=== PATIENT | female | born 1985 | race Caucasian/White ===

== ENCOUNTER → 2016-07-03 | Outpatient (CLI) | payer BC ==
[~2016-07-03] MED LIST: BCPILLS PO; EPP3/2 IM; LEVO100T7 PO; PRED20TA2 PO; PRENATA2 PO; RANI150T3 PO; SYN100 PO
== END | disposition home or self-care (01) ==
LOC: C.LABPVFM 14:46
PROVIDERS: ATTEND Nurse Practitioner
DX: E03.9 Hypothyroidism, unspecified (principal)

== ENCOUNTER → 2016-08-31 | Outpatient (CLI) | payer BC ==
[2016-08-31 17:31] LABS: BASO % 0.2 %; BASO ABS # 0.01 K/uL (0-0.2); COMPLETE YES; HEMATOCRIT 38.8 % (37-47); IG% 0.2 %; LYMPH % 37.6 %; LYMPH ABS # 2.31 K/uL (1.2-3.4); MEAN CELL VOLUME 92.8 fL (80-100); MEAN CORPUSCULAR HEMOGLOBIN 32.5 pg (25-34); MEAN CORPUSCULAR HGB CONC 35.1 g/dl (32-36); MEAN PLATELET VOLUME 11.2 fL (7.4-10.4); PLATELET COUNT 335 K/uL (130-400); RED BLOOD COUNT 4.18 M/uL (4.2-5.4); WHITE BLOOD COUNT 6.14 K/uL (4.8-10.8)
[2016-09-04 08:39] LABS: CHLAMYDIA TRACH RNA*** NOT DETECTED (NOT DETECTED); GC (NEIS GONORRHOEAE)RNA** NOT DETECTED (NOT DETECTED)
[2016-09-04 14:40] LABS: HSV1 AB IGM Negative (Negative); HSV2 AB IGM Negative (Negative)
== END | disposition home or self-care (01) ==
LOC: C.LABPVFM 16:09
PROVIDERS: ATTEND Nurse Practitioner
DX: Z20.2 Contact with and (suspected) exposure to infections with a predominantly sexual mode of transmission (principal); L50.1 Idiopathic urticaria

== ENCOUNTER 2016-09-09 20:52 | Emergency (ER) | payer BC ==
[~2016-09-09] VITALS: Ht 170.2 cm; Wt 56.7 kg
[~2016-09-09 20:52] MED LIST changes: -BCPILLS PO; -EPP3/2 IM; -LEVO100T7 PO; -PRED20TA2 PO; -RANI150T3 PO
[2016-09-09 20:56] VITALS: TEMP 36.7; Ht 170.2 cm; Wt 56.7 kg
[2016-09-09] MEDS ORDERED: RANI150T3 PO (21:08)
[2016-09-09] MEDS ORDERED: LEVO100T7 PO (21:08)
[2016-09-09] MEDS ORDERED: BCPILLS PO (21:08)
[2016-09-09] MEDS ORDERED: DiphenhydrAMINE HCL 50 MG/ML VIAL IV STA (21:13)
[2016-09-09] MEDS ORDERED: SODIUM CHLORIDE 0.9% 1000ML 1,000 ML IV STA (21:15)
[2016-09-09] MEDS ORDERED: DEXAMETHASONE SOD INJ 10 MG/ML VIAL IV ONE (21:15)
--- NOTE | 2016-09-09 21:16 | EMERGENCY ROOM VISIT NOTE ---
History Report prepared by Denisibrg: Kami Cain Under the Supervision of: Dr. Deepak Bishop M.D. First contact with patient: 21:07 Chief Complaint: ALLERGIC REACTION Stated Complaint: SWOLLEN LIPS/TONGUE/HANDS History of Present Illness The patient is a 30 year old female who presents to the Emergency Room with complaints of constant allergic reaction symptoms beginning 8 hours prior to arrival. The patient has been experiencing swollen lips, tongue and hands. She also notes hand tingling. She has been experiencing hives intermittently for the past month. The patient states that she is unsure what is causing the reactions. She took Ibuprofen and Benadryl today. Review of Systems See HPI for pertinent positives & negatives. A total of 10 systems reviewed and were otherwise negative. Social History Smoking Status: Never Smoker Smokeless Tobacco Use: No Marital Status: Housing Status: lives with family Current/Historical Medications Scheduled Control Pills ( Control Pills), 1 TAB PO DAILY Epinephrine (Epipen), 0.3 MG IM UD Levothyroxine Sodium (Levothyroxine Sodium), 1 TAB PO DAILY Prednisone (Prednisone Tab), 2 TAB PO DAILY Ranitidine Hcl (Zantac), 150 MG PO BID Allergies Coded Allergies: Erythromycin (Verified Allergy, Severe, HIVES, 09/09/16) Sulfisoxazole (Verified Allergy, Severe, HIVES, 09/09/16) Physical Exam Vital Signs Date Time Temp Pulse Resp B/P Pulse Ox O2 Delivery O2 Flow Rate FiO2 09/09/16 22:36 88 18 124/80 100 Room Air 09/09/16 21:48 98 18 129/81 100 Room Air 09/09/16 20:56 36.7 88 20 121/75 99 Room Air Physical Exam GENERAL: Patient is a healthy-appearing well-nourished female HEAD: Normocephalic atraumatic EYES: Ocular movements intact pupils equal and react to light OROPHARYNX mucous membranes are moist no exudates present no erythema present, lips are grossly swollen, uvula normal, no issues swallowing saliva NECK: Supple no nuchal rigidity, No stridor on exam CHEST: Good equal expansion LUNGS: Clear and equal to auscultation CARDIAC: Normal S1 and S2 ABDOMEN: Soft nontender no guarding BACK: No CVA tenderness EXTREMITIES: No pain upon palpation normal muscle strength in all groups no clubbing cyanosis or edema NEURO: Patient is following commands is answering questions appropriately. Alert and oriented x3 Cranial Nerves 2-12 grossly intact Medical Decision & Procedures Medications Administered Medications (Trade) Dose Ordered Sig/Roz Route Start Time Stop Time Status Last Admin Dose Admin Dexamethasone Sodium Phosphate (Decadron Inj) 10 mg NOW ONCE IV 09/09/16 21:15 09/09/16 21:16 DC 09/09/16 21:18 10 MG Diphenhydramine HCl 25 mg 25 mg NOW STAT IV 09/09/16 21:13 09/09/16 21:14 DC 09/09/16 21:18 25 MG Sodium Chloride (Nss 1000ml) 1,000 ml @ 999 mls/hr Q1H1M STAT IV 09/09/16 21:15 09/09/16 22:15 DC 09/09/16 21:18 999 MLS/HR ED Course 2108: Past medical records reviewed. The patient was evaluated in room A3. A complete history and physical examination was performed. Medical Decision The patient is a 30 year old female who presents to the ED with complaints of allergic reaction. This is a 30-year-old female who is following up with an supervisor pipeline several days. She comes to the emergency department complaining of swollen lips and tongue. I will note that the patient had multiple doses of ibuprofen today which she does not take regularly. She appears to have angioedema and I believe this is most likely started from an NSAID. I advised patient take Tylenol from now on. The patient has no evidence of stridor or wheezing on examination. An IV was established, patient given Benadryl along with Decadron in the emergency department. The patient had slight improvement in her symptoms and no worsening. I believe that the patient can be safely discharged home for follow-up with her supervisor pipeline. I will place her on prednisone for the next several days. The patient is a 28 taking Zantac and Benadryl. Patient was in agreement with the treatment plan. Impression Primary Impression: Angioedema Scribe Attestation The scribe's documentation has been prepared under my direction and personally reviewed by me in its entirety. I confirm that the note above accurately reflects all work, treatment, procedures, and medical decision making performed by me. Departure Information Dispostion Home / Self-Care Prescriptions Prednisone (Prednisone Tab) 20 Mg Tab 2 TAB PO DAILY for 5 Days, TAB Prov: Deepak Bishop MD 09/09/16 Epinephrine (EPIPEN) 0.3 Mg/0.3 Ml Inj 0.3 MG IM UD, #2 BOX Prov: Deepak Bishop MD 09/09/16 Referrals Libra Jones C.R.N.P (PCP) Patient Instructions My [facility] Problem Qualifiers Primary Impression: Angioedema Encounter type: initial encounter Qualified Codes: T78.3XXA - Angioneurotic edema, initial encounter
[2016-09-09] MEDS ORDERED: EPP3/2 IM (22:19)
[2016-09-09] MEDS ORDERED: PRED20TA2 PO (22:19)
[2016-09-09 22:36] VITALS: BP 124/80; PULSE 88; O2SAT 100
== END 2016-09-09 22:45 | disposition home or self-care (01) ==
LOC: C.EDB 20:52 → C.EDA 22:45
DX: T78.3XXA Angioneurotic edema, initial encounter (principal); R22.0 Localized swelling, mass and lump, head; X58.XXXA Exposure to other specified factors, initial encounter

== ENCOUNTER → 2016-09-11 | Outpatient (CLI) | payer BC ==
[~2016-09-11] MED LIST changes: +BCPILLS PO; +EPP3/2 IM; +LEVO100T7 PO; +PRED20TA2 PO; -PRENATA2 PO; +RANI150T3 PO; -SYN100 PO
[2016-09-11 14:04] LABS: LYME DISEASE AB IGG NEG (NEG); LYME DISEASE AB IGM NEG (NEG)
== END | disposition home or self-care (01) ==
LOC: C.LABPVFM 10:25
PROVIDERS: ATTEND Nurse Practitioner
DX: L50.1 Idiopathic urticaria (principal); R53.83 Other fatigue

== ENCOUNTER → 2016-12-01 | Outpatient (CLI) | payer BC ==
[~2016-12-01] MED LIST changes: -PRED20TA2 PO
== END | disposition home or self-care (01) ==
LOC: C.LABPVFM 08:28
PROVIDERS: ATTEND Nurse Practitioner
DX: E03.9 Hypothyroidism, unspecified (principal)

== ENCOUNTER → 2017-02-26 | Outpatient (CLI) | payer BC | END | disposition home or self-care (01) | LOC: C.PAPS 13:15 | PROVIDERS: ATTEND Nurse Practitioner | DX: Z01.419 Encounter for gynecological examination (general) (routine) without abnormal findings (principal) ==